=== PATIENT | male | born 1985 | race Caucasian/White ===

== ENCOUNTER 2023-07-18 22:08 | Emergency (ER) | payer BC, SELFPAY ==
[2023-07-18 22:53] LABS: % Basophils 0.5 % (0-2); % Eosinophils 1.3 % (0-6); % Immature Granulocytes 0.2 % (0-0.5); % Monocytes 6.5 % (1.7-9.3); % Neutrophils 50.5 % (42.2-75.2); Absolute Basophils 0.1 10^3/uL (0-0.2); Absolute Eosinophils 0.1 10^3/uL (0-0.7); Absolute Lymphocytes 4.3 10^3/uL (1.2-3.4); Absolute Monocytes 0.7 10^3/uL (0.1-0.6); Absolute Neutrophils 5.3 10^3/uL (1.4-6.5); Hematocrit 40.6 % (39.0-52.0); Hemoglobin 14.2 g/dL (13.0-18.0); Mean Corpuscular Hgb 29.6 pg (27.0-31.0); Mean Corpuscular Volume 84.8 fL (80.0-94.0); Mean Platelet Volume 9.4 fL (7.4-10.4); Nucleated Red Blood Cells % 0 % (-); Platelet Count 216 10^3/uL (130-400); Red Blood Cell Count 4.79 10^6/uL (4.70-6.10); Red Cell Dist. Width 12.6 % (11.5-14.5); White Blood Cell Count 10.4 10^3/uL (4.8-10.8)
[2023-07-18 23:06] LABS: ALT (SGPT) 57 U/L (0-50); AST (SGOT) 53 U/L (17-59); Albumin 4.4 g/dl (3.5-5.0); Alkaline Phosphatase 69 U/L (38-126); Blood Urea Nitrogen 10 mg/dl (9-20); Calcium 8.9 mg/dl (8.4-10.2); Carbon Dioxide 22 mmol/L (22-30); Chloride 101 mmol/L (98-107); Glucose 112 mg/dl (70-99); Potassium 3.9 mmol/L (3.5-5.1); Sodium 132 mmol/L (135-145); Total Bilirubin 0.6 mg/dl (0.2-1.3); Total Protein 7.1 g/dl (6.3-8.2); eGFR > 60.00
[2023-07-18 23:16] LABS: Alcohol 292 mg/dl
[2023-07-18 23:20] VITALS: BP 126/87; BMI 49.3
--- NOTE | 2023-07-18 23:44 | ED.GENMED ---
History of Present Illness
General
Chief Complaint: Crisis Evaluation
Source: patient
Exam Limitations: none
Time Seen by Provider: 07/18/23 23:05
Nursing documentation reviewed up to this point in time: agreed with
Travel History
Have you had any contact with someone who has COVID-19?: No
Do you have any symptoms of coronavirus? Fever > 100 degrees, chills, cough, shortness of breath, sore throat, loss of taste or smell, muscle aches, or headache?: No
History of Present Illness
History of Present Illness:
Pleasant 38-year-old male presents with depression and suicidal ideation. Patient states that he has 'not been feeling himself for a while'. Patient states that he has been drinking daily to cope with his depression. He used to work as an ER
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 He is here for voluntary inpatient help. He was sent over from crisis for evaluation. Patient does have concern that he had some confusion recently.
His dad of a brain tumor at age 48 and patient is concerned for something similar.
Past History
Past History
ED Past Medical History: Psychiatric (Depression, anxiety); Negative Asthma, HTN, Hypercholesterolemia or NIDDM
ED Past Surgical History: Other (gastric bypass)
Social History
Tobacco: Former smoker
Alcohol: Occasional
Personal:
Living: with family
Review of Systems
Review of Systems
Allergies reviewed?: Yes
All Other Systems: ROS reviewed and negative except as documented in HPI and ROS
Constitutional: Reports no symptoms
EENT: Reports no symptoms
Respiratory: Reports no symptoms
Cardiac: Reports no symptoms
ABD/GI: Reports no symptoms
: Reports no symptoms
Musculoskeletal: Reports no symptoms
Skin: Reports no symptoms
Neurological: Reports no symptoms
Endocrine: Reports no symptoms
Hematologic/Lymphatic: Reports no symptoms
Psychiatric: Reports depression, anxiety and suicidal
Phy Exam
General Physical Exam
General Presentation: well appearing and no apparent distress
General Skin: warm and dry
General Habitus: normal
General Mental: alert
General Hydration: appears well hydrated
ENT Exam
ENT Exam: EOMI, pharynx normal, neck supple and normocephalic
Eye Exam
Eye Exam: PERRL, cornea clear and conjunctiva normal
Cardiovascular Exam
Cardiovascular Exam: regular rate/rhythm, no edema, no murmur and normal peripheral pulses
Pulmonary Exam
Pulmonary Exam: lungs clear, no respiratory distress, no rales, no crackles, no rhonchi, no stridor, no wheezing and no cough
Gastrointestinal Exam
Gastrointestinal Exam: normal bowel sounds, non tender, soft, no organomegaly, no pulsatile mass and non distended
Neurological Exam
Neurological Exam: alert, oriented x3, no motor deficits and speech normal
Musculoskeletal Exam
Musculoskeletal Exam: full ROM and no edema
Skin Exam
Skin Exam: normal color, warm/dry, no rash and no petechia
Psychiatric Exam
Psychiatric Exam: normal mood/affect
Course
Orders/Labs/Results
Orders:
Orders
07/18/23 22:44
Alcohol Urgent
CMP [Comprehensive Metabolic Panel] Urgent
Complete Blood Count/With Diff Urgent
07/19/23 00:06
CT Head W/o Iv Contrast Urgent
Reason For Exam: confusion
Abnormal Lab Results
07/18/23
22:44
Absolute Lymphs (auto) 4.3 H 10^3/uL
(1.2-3.4)
Absolute Monos (auto) 0.7 H 10^3/uL
(0.1-0.6)
Sodium 132 L mmol/L
(135-145)
Glucose 112 H mg/dl
(70-99)
ALT 57 H U/L
(0-50)
07/18/23 22:44
07/18/23 22:44
Vital Signs
Initial and Last Documented VS:
Initial Vital Signs
Temp Pulse Resp BP Pulse Ox
97.6 F 80 20 126/87 97
07/18/23 23:20 07/18/23 23:20 07/18/23 23:20 07/18/23 23:20 07/18/23 23:20
Last Documented Vital Signs
Temp Pulse Resp BP Pulse Ox
97.6 F 80 20 126/87 97
07/18/23 23:20 07/18/23 23:20 07/18/23 23:20 07/18/23 23:20 07/18/23 23:20
*Critical Care Note
Total Time (30-74mins, 75-104mins- exclusive of procedures): Not Applicable
ED Attending Note
-
Portions of this chart may have been created with voice recognition software.� Occasional wrong word or��sound alike� substitutions may have occurred due to the inherent limitations of voice recognition software.
Discharge Plan
Departure
Patient Disposition: [facility]
Date of Disposition: 07/18/23
Time of Disposition: 23:57
Patient Status:: 201
Discharge Problem:
Suicidal ideation, Depression, Alcohol intoxication
Instructions: Depression, Adult (DC), BLOOD PRESSURE, Drug and Alcohol Abuse Information
Prescriptions:
No Action
methylprednisolone [Medrol (Justen)] 4 mg tablets,dose pack
See Rx Instructions .ROUTE .COMPLEX Qty: 21 0RF
Rx Instructions:
orally per package directions
amoxicillin-pot clavulanate 875-125 mg tablet
1 tab PO BID 10 Days Qty: 20 0RF
oxycodone-acetaminophen [Percocet] 5-325 mg tablet
1 tab PO Q6H PRN (Reason: Pain) Qty: 10 0RF
Referrals:
Miguel Hearn MD [Family Provider] -
Interventions
Interventions:
*Risk Screen - Suicide Last Done: 07/18/23 23:20
*General Assessment Last Done: 07/18/23 23:20
*Neglect/Abuse Screening Last Done: 07/18/23 23:20
ED- Fall Risk Assessment Last Done: 07/18/23 23:33
*ED COVID-19 Vaccine History Last Done: 07/18/23 23:20
*Nursing Disposition Last Done: 07/19/23 03:42
ED-Psychological Assessment Last Done: 07/18/23 23:20
Discharge Date and Time
Discharge Date/Time: 07/19/23 03:56
Print Language: MOROCCAN
== END 2023-07-19 03:56 ==
LOC: EMR 22:08
PROVIDERS: EMERGENCY PHYSICIAN Student in an Organized Health Care Education/Training Program; FAMILY PHYSICIAN Internal Medicine
DX: R45.851 Suicidal ideations (principal); F32.A Depression, unspecified; F10.129 Alcohol abuse with intoxication, unspecified; Z87.891 Personal history of nicotine dependence; Z98.84 Bariatric surgery status
CPT/HCPCS: 99284; 70450; 80053; 82077; 85025